=== PATIENT | female | born 1960 | race Caucasian/White ===

== ENCOUNTER 2020-12-06 08:07 | Outpatient (CLI) | payer BC, SELFPAY ==
--- NOTE | 2020-12-06 08:15 | MM_ITS ---
WS: [id number] SCREENING DIGITAL MAMMOGRAM WITH CAD HISTORY: SCREENING COMPARISON: 08/02/2019 and 04/27/2018 Bilateral CC and MLO views submitted. Computer aided detection analyzed. Breast composition: There are scattered areas of fibroglandular density. No suspicious masses, microc alcifications or architectural distortion. MM/[id number] IMPRESSION: BI-RADS: 1-Negative FOLLOW UP: 1 Year Follow-up
== END 2020-12-06 08:08 | disposition home or self-care (01) ==
LOC: RADSHAW 08:10
PROVIDERS: PCP Family Medicine; Visit Provider Family Medicine
DX: Z12.31 Encounter for screening mammogram for malignant neoplasm of breast (principal)
CPT/HCPCS: 77067

== ENCOUNTER 2021-12-26 13:43 | Outpatient (CLI) | payer BC, SELFPAY ==
--- NOTE | 2021-12-26 13:50 | MM_ITS ---
WS: [id number] SCREENING DIGITAL MAMMOGRAM WITH CAD HISTORY: SCREENING COMPARISON: 12/06/2020, 08/02/2019 and 04/27/2018 Bilateral CC and MLO views submitted. Computer aided detection analyzed. Breast composition: There are scattered areas of fibroglandular density. Asymmetry measuring 18 x 9 mm in the upper outer quadrant of the RIGHT breast. Middle to posterior de pth. There is a smaller asymmetry in the RIGHT breast more anteriorly in the upper outer quadrant. LE FT breast is negative. MM/[id number] IMPRESSION: BI-RADS: 0-Incomplete: Need additional imaging evaluation FOLLOW UP: Need Additional Imaging RIGHT breast: Spot compression views (CC and MLO). True ML. Ultrasound to follo w if abnormality persists.
== END 2021-12-26 13:44 | disposition home or self-care (01) ==
LOC: RADSHAW 13:47
PROVIDERS: PCP Family Medicine; Visit Provider Family Medicine
DX: Z12.31 Encounter for screening mammogram for malignant neoplasm of breast (principal)
CPT/HCPCS: 77067

== ENCOUNTER 2022-12-30 12:30 | Outpatient (CLI) | payer BC, SELFPAY | END 2022-12-30 12:31 | disposition home or self-care (01) | LOC: SLEEP 12-31 12:14 | PROVIDERS: PCP Family Medicine; Visit Provider Internal Medicine | DX: G47.10 Hypersomnia, unspecified (principal); R06.83 Snoring; R53.83 Other fatigue; G47.33 Obstructive sleep apnea (adult) (pediatric) | CPT/HCPCS: G0399 ==

== ENCOUNTER → 2023-08-06 14:46 | Outpatient (BNVA) | payer MEDICARE, OTHER, SELFPAY | PROVIDERS: PCP Internal Medicine; Visit Provider Nurse Practitioner Family | DX: L82.1 Other seborrheic keratosis (principal); D22.5 Melanocytic nevi of trunk; L57.8 Other skin changes due to chronic exposure to nonionizing radiation; L81.4 Other melanin hyperpigmentation; L85.3 Xerosis cutis; Z08 Encounter for follow-up examination after completed treatment for malignant neoplasm; Z85.828 Personal history of other malignant neoplasm of skin; L57.0 Actinic keratosis | CPT/HCPCS: 17000; 99213 ==

== ENCOUNTER → 2023-08-28 11:21 | Outpatient (BNVA) | payer MEDICARE, OTHER, SELFPAY | PROVIDERS: PCP Internal Medicine; Visit Provider Dermatology | DX: L57.0 Actinic keratosis (principal) | CPT/HCPCS: 96567 ==

== ENCOUNTER 2024-01-12 08:43 | Outpatient (CLI) | payer MEDICARE, OTHER, SELFPAY ==
--- NOTE | 2024-01-12 | ECG_ITS ---
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 Interpretive Statements NAME OF STUDY: LEXISCAN SESTAMIBI STRESS TEST INDICATION: Chest Pain, PROCEDURE: At the baseline, the EKG revealed normal sinus rhythm with some nonspecific T wave changes. The baseline heart was 66 bpm with a blood pressue of 150/78 mm of Hg Lexiscan was infused over a period of 20 seconds. A total of 0.4 milligrams of Lexiscan was infused. The stress phase was continued for a total of 5 minutes. Heart rate at the end of the stress phase was 96 bpm with a blood pressure 143/61 mm of Hg. The EKG at the peak infusion revealed no significant changes. Sestamibi was injected 20 seconds after the Lexiscan infusion. Heart rate at the end of the recovery phase was 93 bpm with a blood pressure of 138/81 mm of Hg. CONCLUSION: 1. No significant EKG changes with the LexiScan infusion 2. No LexiScan induced chest pain or cardiac arrhythmia 3. Normal blood pressure and heart rate response 4. Sestamibi/sestamibi perfusion scan pending; see separate report. Electronically Signed On 01-17-2024 20:13:32 HR CONSULTANT by Brielle Higgins M.D. [id number]
--- NOTE | 2024-01-12 08:45 | NMCV_ITS ---
NM kelle perf SPECT r/s* [id number] Yolis Cee Age: 63 Gender: F : 1960 Exam Date: 01/12/2024 08:45 Ordering Phys: Gwen Romeo MD Technologist: KISHOR Simeon Exam Location: [facility] Indications: CHEST PAIN STRESS TEST [facility] IMAGE PROTOCOL Rest/Stress 1 Lexiscan Day Radiopharmaceutical Dose (mCi) Administration Site Administered by Rest: Tc-99m 10.9 IV KISHOR Simeon Sestamibi Stress:Tc-99m 32.4 IV KISHOR Segura Sestamibi Rest: 12-Jan-2024 60 Discovery 630 Stress: 12-Jan-2024 30 Discovery 630 0.4mg Lexiscan. Images obtained in supine and prone position. SPECT RESULTS Technical Quality: Excellent Raw Data Analysis: Normal Image Corrections: No attenuation or motion correction applied Summed Stress Score: 0 Summed Rest Score: 2 Summed Difference Score: 0 PERFUSION FINDINGS Small area of slightly decreased tracer uptake was noted in the mid inferolateral region, with no significant reversibility FUNCTIONAL RESULTS (calculated via Gated SPECT) Stress Image LV EF (%): 91 Stress EDV (mL):66 TID: 0.74 Stress ESV (mL):6 FUNCTIONAL FINDINGS: Segmental wall motion analysis revealing no gross wall motion abnormalities IMPRESSIONS 1. Myocardial perfusion imaging revealing a small area of slightly decreased persistent tracer uptake in the mid inferolateral region, suggestive of myocardial scarring versus attenuation artifact. 2. Normal LV ejection fraction 91%. 3. LV wall motion analysis revealing no gross wall motion abnormalities. 4. Normal LV volume Low probability for coronary ischemia, based on the above findings No similar previous studies are available for comparison Dr Brielle Higgins MD [facility] (Electronically Signed) Final Date: 12 January 2024 14:05 S
[2024-01-12 08:59] VITALS: BMI 29.5
[2024-01-12] MEDS: regadenoson 0.4 Mg/5 ml Syringe 0.400000000000000022 MG IVP (10:42)
[2024-01-12 11:01] VITALS: BP 138/61; PULSE 91
== END 2024-01-12 08:44 | disposition home or self-care (01) ==
PROVIDERS: PCP Internal Medicine; Visit Provider Internal Medicine
DX: R07.9 Chest pain, unspecified (principal)
CPT/HCPCS: 36415; 78452; 93017; 96374; A9500; J2785

== ENCOUNTER → 2024-01-28 11:31 | Outpatient (BNVA) | payer MEDICARE, OTHER, SELFPAY | PROVIDERS: PCP Internal Medicine; Visit Provider Dermatology | DX: L57.0 Actinic keratosis (principal) | CPT/HCPCS: 96567 ==

== ENCOUNTER → 2024-03-10 13:31 | Outpatient (BNVA) | payer MEDICARE, OTHER, SELFPAY | PROVIDERS: PCP Internal Medicine; Visit Provider Dermatology | DX: L57.0 Actinic keratosis (principal); L98.8 Other specified disorders of the skin and subcutaneous tissue; L82.1 Other seborrheic keratosis; D22.5 Melanocytic nevi of trunk; L91.8 Other hypertrophic disorders of the skin; Z85.828 Personal history of other malignant neoplasm of skin | CPT/HCPCS: 17000; 99213 ==

== ENCOUNTER → 2024-10-04 12:58 | Outpatient (BNVA) | payer MEDICARE, OTHER, SELFPAY | PROVIDERS: PCP Internal Medicine; Visit Provider Nurse Practitioner Family | DX: S60.211A Contusion of right wrist, initial encounter (principal); X58.XXXA Exposure to other specified factors, initial encounter; L98.8 Other specified disorders of the skin and subcutaneous tissue; L82.1 Other seborrheic keratosis; D22.5 Melanocytic nevi of trunk; L91.8 Other hypertrophic disorders of the skin; Z85.828 Personal history of other malignant neoplasm of skin; L82.0 Inflamed seborrheic keratosis; L29.89 Other pruritus; L53.8 Other specified erythematous conditions; L57.0 Actinic keratosis | CPT/HCPCS: 17000; 17110; 99213 ==

== ENCOUNTER → 2024-11-22 08:55 | Outpatient (BNVA) | payer MEDICARE, OTHER, SELFPAY | PROVIDERS: PCP Internal Medicine; Visit Provider Nurse Practitioner | DX: M25.531 Pain in right wrist (principal); M67.431 Ganglion, right wrist; M65.4 Radial styloid tenosynovitis [de Quervain] | CPT/HCPCS: 20600; 20612; 73110; 99204; J3301 ==

== ENCOUNTER → 2024-12-20 08:27 | Outpatient (BNVA) | payer MEDICARE, OTHER, SELFPAY | PROVIDERS: PCP Internal Medicine; Visit Provider Nurse Practitioner | DX: M65.4 Radial styloid tenosynovitis [de Quervain] (principal); M71.331 Other bursal cyst, right wrist | CPT/HCPCS: 99214 ==

== ENCOUNTER 2025-01-10 08:04 | Outpatient (CLI) | payer MEDICARE, OTHER, SELFPAY ==
[2025-01-10 08:24] LABS: Add Urine Microscopic? NO
[2025-01-10 08:26] LABS: Basophils % 0.4 %; Eosinophils # 0.1 10^3/uL (0.0-0.8); Eosinophils % 1.1 %; Hematocrit 34.1 % (36-47); Lymphocytes # 1.4 10^3/uL (0.8-4.8); Lymphocytes % 24.5 %; Mean Corpuscular HGB Conc 32.3 g/dL (30-55); Mean Corpuscular Hemoglobin 30.1 pg (27-33); Mean Corpuscular Volume 93.4 fl (85-98); Mean Platelet Volume 9.9 fL (7.4-10.4); Monocytes # 0.3 10^3/uL (0.2-0.9); Monocytes % 5.5 %; Neutrophils # 3.85 10^3/uL (1.8-7.7); Neutrophils % 68.3 %; Nucleated Red Blood Cells % 0 %; Platelet Count 178 10^3/cmm (157-399); Red Blood Count 3.65 10^6/uL (3.85-5.65); Red Cell Distribution Width 13.7 % (12.1-15.1); White Blood Count 5.63 10^3/uL (3.29-11.43)
[2025-01-10 08:27] LABS: Bilirubin Urine Negative (Negative); Blood Urine Negative (Negative); Glucose Urine UA Negative (Normal); Ketones Urine Negative (Negative); Leukocyte Esterase Urine Negative (Negative); Nitrate Urine Negative (Negative); Protein Urine Negative (Negative); Specific Gravity, Urine 1.011 (1.005-1.030); Urine Appearance Clear (CLEAR); Urine Color Yellow (Yellow); Urobilinogen Urine 0.2 mg/dL (Negative); pH Urine 6.5 (5-7)
[2025-01-10 08:51] LABS: Alanine Aminotransferase 12 U/L (0-33); Albumin Level 3.9 g/dL (3.5-5.2); Alkaline Phosphatase 76 U/L (35-105); Anion Gap 10.8 (5-19); Aspartate Amino Transferase 16 U/L (0-32); Blood Urea Nitrogen 21 mg/dL (8-23); Carbon Dioxide 29 mmol/L (22-29); Chloride 99 mmol/L (98-107); Globulin 2.5 g/dL (1.3-4.6); Glomerular Filtration Rate 49.7 mL/min (90-130); Glucose 108 mg/dL (65-115); Osmolality Calculated 284 mOsm/kg (285-295); Potassium 3.8 mmol/L (3.5-5.1); Sodium 135 mmol/L (136-145); Total Bilirubin 0.6 mg/dL (0.15-1.2); Total Protein 6.4 g/dL (6.6-8.7)
[2025-01-10 09:13] LABS: Charge for UA Resulting for Rev
== END 2025-01-10 08:05 | disposition home or self-care (01) ==
LOC: LAB 08:05
PROVIDERS: PCP Internal Medicine; Visit Provider Nurse Practitioner
DX: M71.331 Other bursal cyst, right wrist (principal)
CPT/HCPCS: 36415; 80053; 81003; 85025

== ENCOUNTER → 2025-01-11 09:15 | Outpatient (BNVA) | payer MEDICARE, OTHER, SELFPAY | PROVIDERS: PCP Internal Medicine; Visit Provider Family Medicine | DX: Z01.818 Encounter for other preprocedural examination (principal) | CPT/HCPCS: 93005 ==

== ENCOUNTER 2025-01-27 05:44 | Day surgery (SDC) | payer MEDICARE, OTHER, SELFPAY ==
[2025-01-27] VITALS (11 sets, daily range): BP systolic 138–192; BP diastolic 71–102; PULSE 69–84; RESP 16–22; TEMP 36.1–36.3; O2SAT 95–98; BMI 29.7
[2025-01-27] MEDS: gabapentin 300 mg Capsule PO (06:09)
[2025-01-27] MEDS: CELEcoxib 200 mg Capsule 400 MG PO (06:09)
[2025-01-27] MEDS: sodium chloride 0.9% 1,000 ML 30 ML IV (06:11)
[2025-01-27] MEDS: acetaminophen 1,000 MG/100 ML PIGGYBACK 400 MG IV (06:12)
--- NOTE | 2025-01-27 07:01 | P.HPUD_ITS ---
Surgery/Procedure H&P Update DATE OF PROCEDURE: January 27, 2025 DATE H&P PERFORMED: 01/11/25 H&P UPDATE INFORMATION: I have reviewed H&P completed within last 30 days, I have examined patient prior to procedure, No changes to prior documentation and H&P is in [facility] EMR on date indicated PLANNED PROCEDURE: Operation Date: 01/27/25 07:30 Proposed Procedures p removal Of Ganglion Cyst right wrist(Right) - Florecita Sierra MD Related Problem List Diagnoses (1) Synovial cyst of right wrist:
--- NOTE | 2025-01-27 07:50 | ANES.PREANE2 ---
Pre-Anesthetic Assessment Height/Weight: Height 5 ft 4 in Weight 173 lb Temp Pulse Resp BP Pulse Ox O2 Del Method 97.3 F L 70 18 151/91 96 Room Air 01/27/25 06:04 01/27/25 06:14 01/27/25 06:14 01/27/25 06:14 01/27/25 06:14 01/27/25 06:27 Preop Diagnosis: Ganglion cyst Operation Date: 01/27/25 07:30 Proposed Procedures p removal Of Ganglion Cyst right wrist(Right) - Florecita Sierra MD Was Beta Nikole taken within 24 hours: N/A Was Clonidine taken within 24 hours: N/A Last intake: Intake Last Liquid Date 01/26/25 Last Liquid Time 19:00 Last Solid Date 01/26/25 Last Solid Time :00 Social No alcohol and No tobacco Exam alert, oriented x 3, clear to auscultation bilaterally and regular rate & rhythm Airway Submandibular: within normal limits Cervical ROM: within normal limits Mallampati: Class II Dentition: full Anesthetic Plan ASA status: 3 Anesthesia: General Other: No prior issues with anesthesia NPO since yesterday evening History of hypertension on amlodipine and losartan EL, wears CPAP most nights GERD, controlled with omeprazole Labs 01/10/2025 reviewed and acceptable for procedure Negative stress test 2023, recent EKG showing sinus rhythm Patient is able to perform ADLs, METs greater than 4 Plan for general anesthesia Medications/Allergies Home Medications ?Medication ?Instructions ?Recorded ?Confirmed ?Last Taken ?Type amlodipine 5 mg tablet 5 mg PO DAILY 02/06/22 01/26/25 01/27/25 05:15 History losartan 25 mg tablet 25 mg PO DAILY 02/06/22 01/26/25 01/26/25 History sertraline 25 mg tablet 25 mg PO DAILY 02/06/22 01/26/25 01/26/25 History tamoxifen 20 mg tablet 20 mg PO DAILY 11/22/24 01/26/25 01/26/25 History Bacillus coagulans 10 billion cell 10 cell PO DAILY 01/11/25 01/26/25 01/26/25 History capsule,delayed release (Probiotic (B. coagulans)) atorvastatin 20 mg tablet (Lipitor) 20 mg PO DAILY 01/11/25 01/26/25 01/26/25 History calcium 600 mg (as 1 cap PO DAILY 01/11/25 01/26/25 01/26/25 History carbonate)-vitamin D3 25 mcg (1,000 unit) capsule cholecalciferol (vitamin D3) 50 50 mcg PO DAILY 01/11/25 01/26/25 01/26/25 History mcg (2,000 unit) capsule ferrous sulfate 325 mg (65 mg 325 mg PO DAILY 01/11/25 01/26/25 01/26/25 History iron) tablet (FeroSul) magnesium gluconate 27 mg 27 mg PO BID 01/11/25 01/26/25 01/26/25 History magnesium (500 mg) tablet omeprazole 20 mg capsule,delayed 20 mg PO DAILY 01/11/25 01/26/25 01/27/25 05:15 History release psyllium husk 0.52 gram capsule 0.52 g PO DAILY 01/11/25 01/26/25 01/26/25 History (Fiber (psyllium husk)) Allergies Allergy/AdvReac Type Severity Reaction Status Date / Time morphine Allergy very sick Verified 01/11/25 09:48 Sulfa (Sulfonamide Allergy rash Verified 01/11/25 09:48 Antibiotics) Current Medications Generic Name Dose Route Start Last Admin Trade Name Freq PRN Reason Stop Dose Admin Sodium Chloride 1,000 mls @ 30 mls/hr 01/27/25 06:00 01/27/25 06:11 Sodium Chloride 0.9% IV 01/28/25 05:59 30 mls/hr .Q24H ELVI Administration PFSH Anesthesia Medical History Breast cancer HTN (hypertension) Hyperlipemia Depression Seasonal allergies History of nonmelanoma skin cancer Surgical History H/O: hysterectomy Family History Other CAD (coronary artery disease) Social History Smoking and tobacco/nicotine status: never used tobacco/nicotine Alcohol intake: never Data Anesthesia Cardiac Studies: Sestamibi Stress Test (Cardiology) 01/12/24
[2025-01-27] MEDS: ceFAZolin 2,000 mg SDV 2000 MG IVP (08:11)
[2025-01-27] MEDS: BUPivacaine 0.5% INJ 30 mL XX (08:41)
--- NOTE | 2025-01-27 09:27 | PM.OP ---
Operative Report Date of procedure: January 27, 2025 Pre-op diagnosis: Right wrist ganglion cyst with de Quervain's tenosynovitis Post-op diagnosis: Right wrist tendon sheath ganglion cyst with de Quervain's tenosynovitis Post-op findings: Extension of a large tendon sheath ganglion under and into de Quervain's canal Procedure done: Right wrist de Quervain's release with additional excision of large tendon sheath ganglion involving the area proximal to de Quervain's canal and into de Quervain's canal Implants: None Specimens removed/disposition: Synovial cyst, excised Pathology: Cyst sent to pathology Surgeon: Florecita Sierra MD Peer Counselor: None Anesthesia: General (Per LMA, ASA 3) Estimated blood loss (mL): 1 Tourniquet time (min): 31 (At 250 mmHg) IV fluids (mL): 600 Urine output (mL): 0 (No Martin) Complications: None Findings: Large ganglion cyst proximal to de Quervain's canal with extension into the canal. The patient had symptoms of de Quervain's tenosynovitis, and when the canal was open minimally, there was significant fluid from the canal. Condition: stable Disposition: PACU (Then return to same-day surgery for discharge to home) Brief History: This 64-year-old woman presented to the clinic complaining of a right ganglion cyst. She also had symptoms consistent with de Quervain's tenosynovitis. Prior to presenting to the operating room, the patient had aspiration of her ganglion cyst with approximately 4 cc of fluid obtained. Previously, she had had injections for de Quervain's tenosynovitis which were not successful. After discussion in the office, the patient wished to proceed with removal of the ganglion cyst, but she did not want the de Quervain's unless it was absolutely necessary at the time of surgery. Consent was signed for excision of ganglion cyst. Questions were answered. The patient was seen on the day of surgery and questions were once again answered and discussion was undertaken regarding de Quervain's tenosynovitis. The patient understood that if necessary, we would proceed into the de Quervain's canal to be able to completely remove the ganglion cyst. Procedure: The patient was brought to the operating theater. She was administered a general anesthesia per LMA, ASA 3, which was well-tolerated. The tourniquet was elevated to 250 mmHg for a total tourniquet time of 31 minutes. The patient was also given Ancef 2 g preoperatively. The arm was then prepped and draped with DuraPrep in usual fashion with the arm draped free. A surgical pause was performed. At the time, the surgical pause, we confirmed the site and side of surgery. We also confirmed the patient's identity, appropriate and timely administration of preoperative antibiotics and preoperative surgical markings. The ganglion was palpated and evaluated and marked in the preoperative holding area. It was again palpated and surgery. After elevation of the tourniquet, a longitudinal incision was made centering over the ganglion cyst. This was noted to be quite large. Care was taken to gently dissected around the ganglion cyst which appeared to involve primarily the tendons. It was proximal to de Quervain's canal. De Quervain's canal was at the very distal end of the ganglion, and after excision of the ganglion, there was some fluid which exuded from de Quervain's canal. Therefore, the canal was opened partially and a more significant amount of fluid was encountered. Due to this finding, de Quervain's canal was open in a standard fashion for a de Quervain's release. The patient understood preoperatively that this might be necessary, but it was not a planned procedure. Upon entry into de Quervain's canal, there was noted to be even more cystic type fluid. This appeared to emanate from the distal radiocarpal joint. Debridement was accomplished in this area as well. The tendons were evaluated. There was no further evidence of pathology. All tendons were released from the canal. The base of the canal was palpated. The canal was noted to be somewhat shallow, and the tendons appeared to be slightly unstable, therefore, a Z-type plasty was performed and the ligament overlying de Quervain's canal was lengthened allowing us to close this to help assist the tendons remaining in their anatomic position. After this was accomplished, attention was directed to closure. The wound was irrigated with ropivacaine plain. It was then closed with 3-0 Monocryl to close the Z-plasty over the de Quervain's canal as well as to close the subcutaneous tissues. Skin was closed with a running subcuticular stitch of 4-0 Monocryl. Prior to closure, the wound was injected with ropivacaine as well. Sterile dressing was then placed consisting of Dermabond, Steri-Strips, OpSite, fluffed fluffs, sterile soft roll, and an Artem wrap. The tourniquet was released after 31 minutes. There were no complications. There were no specimens. The procedure was well tolerated. Plan is the patient will be discharged home. Related Problem List Diagnoses (1) De Quervain's tenosynovitis, right: (2) Ganglion cyst of tendon sheath of left hand: (3) Synovial cyst of right wrist:
--- NOTE | 2025-01-27 10:18 | ANE.PACU2 ---
Inpatient post-anesthesia follow up: Airway intact: Yes Vital signs: Temperature 97.0 F Pulse Rate 73 Respiratory Rate 16 Blood Pressure 148/79 Pulse Oximetry 95 Oxygen Delivery Me thod Room Air Oxygen Flow Rate 2 Fraction of Inspir ed Oxygen Hydration adequate: Yes Nausea and vomiting: No Pain level: 1 Mental status: Baseline
== END 2025-01-27 10:18 | disposition home or self-care (01) ==
PROVIDERS: PCP Internal Medicine; Visit Provider Specialist
PROC: (CPT 25112; principal; 2025-01-27 07:30)
PROC: (CPT 25000; 2025-01-27 07:30)
DX: M67.431 Ganglion, right wrist (principal); M65.4 Radial styloid tenosynovitis [de Quervain]; G47.33 Obstructive sleep apnea (adult) (pediatric); K21.9 Gastro-esophageal reflux disease without esophagitis; E78.5 Hyperlipidemia, unspecified; Z79.899 Other long term (current) drug therapy; I10 Essential (primary) hypertension; Z88.2 Allergy status to sulfonamides; Z88.5 Allergy status to narcotic agent
CPT/HCPCS: 25112; 25000; 88304; J0131; J0690; J1100; J2704; J3010; J3490; J7030; J9999

== ENCOUNTER → 2025-02-11 09:47 | Outpatient (BNVA) | payer MEDICARE, OTHER, SELFPAY | PROVIDERS: PCP Internal Medicine; Visit Provider Nurse Practitioner | DX: Z98.890 Other specified postprocedural states (principal) | CPT/HCPCS: 99024 ==

== ENCOUNTER → 2025-04-06 08:02 | Outpatient (BNVA) | payer MEDICARE, OTHER, SELFPAY | PROVIDERS: PCP Internal Medicine; Visit Provider Nurse Practitioner Family | DX: I87.2 Venous insufficiency (chronic) (peripheral) (principal); L82.1 Other seborrheic keratosis; L98.8 Other specified disorders of the skin and subcutaneous tissue; L81.4 Other melanin hyperpigmentation; L57.8 Other skin changes due to chronic exposure to nonionizing radiation; D22.5 Melanocytic nevi of trunk; Z08 Encounter for follow-up examination after completed treatment for malignant neoplasm; Z85.828 Personal history of other malignant neoplasm of skin; L57.0 Actinic keratosis | CPT/HCPCS: 17000; 99214 ==

== ENCOUNTER → 2025-10-04 09:16 | Outpatient (BNVA) | payer MEDICARE, OTHER, SELFPAY | PROVIDERS: PCP Internal Medicine; Visit Provider Nurse Practitioner Family | DX: L57.8 Other skin changes due to chronic exposure to nonionizing radiation (principal); L81.4 Other melanin hyperpigmentation; L82.1 Other seborrheic keratosis; L98.8 Other specified disorders of the skin and subcutaneous tissue; Z08 Encounter for follow-up examination after completed treatment for malignant neoplasm; Z85.828 Personal history of other malignant neoplasm of skin; L57.0 Actinic keratosis | CPT/HCPCS: 17000; 99213 ==